=== PATIENT | male | born 1980 | race Caucasian/White ===

== ENCOUNTER 2022-02-25 11:33 | Emergency (ER) | payer OTHER ==
[~2022-02-25] VITALS: Ht 167.6 cm; Wt 77.1 kg
[2022-02-25] MEDS ORDERED: NAPR-1180 PO (12:52)
[2022-02-25] MEDS ORDERED: KETOROLAC 60 MG VIAL (30MG/ML) IM ONE (13:00)
[2022-02-25 14:28] VITALS: BP 156/85
== END 2022-02-25 14:29 | disposition home or self-care (01) ==
LOC: EDH 11:33
DX: S03.42XA Sprain of jaw, left side, initial encounter (principal); R03.0 Elevated blood-pressure reading, without diagnosis of hypertension; X58.XXXA Exposure to other specified factors, initial encounter; Y93.89 Activity, other specified; Y92.89 Other specified places as the place of occurrence of the external cause; Y99.8 Other external cause status
CPT/HCPCS: 96372; 99283; J1885

== ENCOUNTER 2024-12-08 16:44 | Emergency (ER) | payer SELFPAY ==
[~2024-12-08] VITALS: Ht 167.6 cm; Wt 74.8 kg
[~2024-12-08 16:44] MED LIST: NAPR-1180 PO
--- NOTE | 2024-12-08 17:13 | ERN ---
General Chief Complaint: Abdominal Pain Stated Complaint: COUGH, PAIN ON ABD Time Seen by MD: 16:45 Time Seen by Midlevel: 16:45 Source: patient ( ) History of Present Illness Initial Comments Patient is a 44-year-old male presenting to the emergency department with pain and his left ribcage. Patient reports having two episodes of coughing. Shortly after the pain started. The pain is in his left lower chest wall and left upper quadrant area. It was worse with deep inspiration and certain movements. Denies any direct injury or fall. Denies any history of kidney stones Allergies: Coded Allergies: No Known Drug Allergies (Unverified Allergy, Unknown, 02/25/22) Home Meds Active Scripts Naproxen (Naprosyn) 500 Mg Tablet, 500 MG PO BIDPC, #60 TAB Prov:MARCELLA ARAMBULA 02/25/22 Past Medical History Past Medical History: No Pertinent History Past Surgical History: None Family History Family History: Negative Social History Social History: Negative ROS Dictation CONSTITUTIONAL: Negative except for HPI HEAD/FACE: Negative except for HPI EENT: Negative except for HPI RESPIRATORY: Negative except for HPI GASTROINTESTINAL/ABDOMINAL: Negative except for HPI GENITOURINARY: Negative except for HPI MUSCULOSKELETAL: Negative except for HPI INTEGUMENTARY: Negative except for HPI NEUROLOGICAL/PSYCH: Negative except for HPI HEMATOLOGIC/LYMPHATIC: Negative except for HPI All Systems Negative, Except as noted above. 13 point review of systems assessed and all negative except for above. Physical Exam Physical Exam Dictation Vital Signs reviewed General Appearance: Alert, oriented x 3, no acute distress, well developed, nourished. Head and Face: non-traumatic. Eyes: PERRL, pink conjunctivas, eyelid no trauma, anterior chamber with arcus senilis. Ears: Pinnas intact and no signs of trauma or erythema ear canals clear and no discharge TM no erythema Nose: No discharge, no bleeding. Oropharynx: Mouth normal, tongue pink, pharynx clear,no erythema, tonsils no exudates, no abscesses noted, mucous membrane moist Neck: Supple, non-tender, no thyromegaly, no masses, no JVD, no bruits Breast:Deferred Chest:No tenderness, no crepitus, no paradoxical movement, no retractions Lungs:Clear, well-ventilated, symmetric, no rales, no wheezing, no rhonchi, no stridor, good breath sounds bilaterally Heart: Regular rate, regular rhythm, no murmur, no gallops Vascular: no peripheral edema, Abdomen: Soft, positive bowel sounds, nondistended, no guarding, nontender, no rebound, no masses no hepatomegaly, no splenomegaly, no Trimble's sign, no hernias. Rectal: Deferred Genital: Deferred Neurological: Normal speech, motor function intact, sensory function intact Musculoskeletal: Neck nontender, full range of motion, back nontender, full range of motion, Extremities: nontender, full range of motion Skin: Color pink, dry, no turgor, no rash, no lacerations, no abrasions, no contusions. Lymphatic: Deferred Results Laboratory and Microbiology Lab and Micro Result Laboratory Tests Test 12/08/24 17:08 White Blood Count 7.8 K/uL (4.8-10.8) Red Blood Count 4.45 MIL/uL (4.50-6.20) L Hemoglobin 13.7 g/dL (14.0-18.0) L Hematocrit 40.4 % (42-54) L Mean Corpuscular Volume 90.8 fL (79-99) Mean Corpuscular Hemoglobin 30.8 pg (27.0-33.0) Mean Corpuscular Hemoglobin Concent 33.9 g/dL (32.0-36.0) Red Cell Distribution Width 12.7 % (11.0-15.5) Platelet Count 243 K/uL (130-400) Mean Platelet Volume 9.5 fL (7.5-10.5) Immature Granulocyte % (Auto) 0.3 % (0-1) Neutrophils (%) (Auto) 67.6 % (40.0-77.0) Lymphocytes (%) (Auto) 24.0 % (21.0-51.0) Monocytes (%) (Auto) 7.4 % (3.0-13.0) Eosinophils (%) (Auto) 0.3 % (0.0-8.0) Basophils (%) (Auto) 0.4 % (0.0-5.0) Neutrophils # (Auto) 5.3 K/uL (1.8-7.7) Lymphocytes # (Auto) 1.9 K/uL (1.0-4.8) Monocytes # (Auto) 0.6 K/uL (0.1-1.0) Eosinophils # (Auto) 0.02 K/uL (0.00-0.70) Basophils # (Auto) 0.03 K/uL (0.00-0.20) Absolute Immature Granulocyte (auto 0.02 K/uL (0-1) Nucleated Red Blood Cells 0.0 % (0.0-0.19) Urine Color YELLOW (YELLOW) Urine Appearance CLEAR (CLEAR) Urine pH 5.5 (5.0-8.0) Urine Specific Jackson 1.026 (1.001-1.031) Urine Protein 10 mg/dL (NEGATIVE) H Urine Glucose (UA) NEGATIVE mg/dL (NEGATIVE) Urine Ketones 5 mg/dL (NEGATIVE) H Urine Occult Blood +- (TRACE) (NEGATIVE) H Urine Nitrate NEGATIVE (NEGATIVE) Urine Bilirubin NEGATIVE mg/dL (NEGATIVE) Urine Urobilinogen 0.2 mg/dL (0.2-1.0) Urine Leukocyte Esterase NEGATIVE Jennifer/uL Urine RBC 0-1 /HPF (0-1) Urine WBC 0-1 /HPF (0-1) Urine Bacteria None /HPF (None Seen) Sodium Level 131 mmol/L (136-145) L Potassium Level 3.2 mmol/L (3.5-5.1) L Chloride Level 93 mmol/L (101-111) L Carbon Dioxide Level 29 mmol/L (21-32) Blood Urea Nitrogen 13 mg/dL (7-18) Creatinine 1.0 mg/dL (0.5-1.3) Glomerular Filtration Rate Calc 94 mL/min (>90) Random Glucose 101 mg/dL (70-105) Total Calcium 9.4 mg/dL (8.5-10.1) Total Bilirubin 0.6 mg/dL (0.2-1.0) Direct Bilirubin 0.1 mg/dL (0.0-0.3) Aspartate Amino Transf (AST/SGOT) 55 U/L (10-37) H Alanine Aminotransferase (ALT/SGPT) 50 U/L (12-78) Alkaline Phosphatase 85 U/L (50-136) Troponin I High Sensitivity < 4 ng/L (4-75) L Total Protein 8.6 g/dL (6.0-8.3) H Albumin 4.1 g/dL (3.5-5.0) Lipase 48 U/L (16-77) Labs Reviewed?: Yes MDM MDM: Patient is a 44-year-old male presenting to the emergency department with pain and his left ribcage. Patient reports having two episodes of coughing. Shortly after the pain started. The pain is in his left lower chest wall and left upper quadrant area. It was worse with deep inspiration and certain movements. Denies any direct injury or fall. Denies any history of kidney stones. On physical examination the patient has subjective pain to the left lower chest wall/left upper quadrant pain. Cardiac workup was initiated to rule out an acute coronary syndrome. EKG does not show any evidence of a IN. Cardiac enzymes are negative. Chest x-ray does shows no evidence of a pneumothorax. A CT scan of the abdomen was ordered after UA showed trace microscopic hematuria. CT scan does not reveal any evidence of a ureter stone or any other acute intra-abdominal pathologies. The patient was reassessed and believes the pain may be musculoskeletal in nature. Patient was given 15 mg of Toradol IV and reports feeling improved. Patient was stable for discharge at this time. Patient was advised to follow up with primary care doctor in 2-3 days for repeat evaluation. Return precautions discussed Differential diagnosis: Pneumothorax, ureter stone, ACS There are no social concerns with this patient. Prescription drug management Prescriptions will include: None Medical management and examination interpretation discussions were had by me with other qualified healthcare professionals as indicated for the patient's care. ED Course Orders Procedure Category Date Status Time Cbc With Differential LAB 12/08/24 Complete 17:00 Basic Metabolic Panel LAB 12/08/24 Complete 17:00 Hepatic Function Panel LAB 12/08/24 Complete 17:00 Lipase LAB 12/08/24 Complete 17:00 Urinalysis Profile LAB 12/08/24 Complete 17:00 Chest 1vw RAD 12/08/24 Resulted 17:00 Troponin I High LAB 12/08/24 Complete Sensitivity 17:00 12 Lead Ekg Tracing- EKG 12/08/24 Complete Technical 17:00 Ct Abdomen/Pelvis W/O CT 12/08/24 Resulted Contrast 18:01 Ketorolac PHA 12/08/24 Complete Tromethamine 15mg/Ml 18:30 Current Medications Medications (Trade) Dose Ordered Sig/Althea Route PRN Reason Start Time Stop Time Status Last Admin Dose Admin Ketorolac Tromethamine (toRADol) 15 mg ONCE ONCE IV 12/08/24 18:30 12/08/24 18:31 DC 12/08/24 18:43 Vital Signs Date Time Temp Pulse Resp B/P (MAP) Pulse Ox O2 Delivery O2 Flow Rate FiO2 12/08/24 16:49 99.1 98 16 182/96 98 Room Air DX & DISP Disposition: Discharge Departure Impression: Primary Impression: Non-cardiac chest pain Additional Impression: Musculoskeletal pain Condition: Stable Additional Instructions: Your blood work today is unremarkable. Your cardiac enzymes are negative. Your EKG does not show any evidence of a heart attack. Your chest x-ray does not show any evidence of a collapsed lung. Your CT scan of the abdomen/pelvis does not show any evidence of a kidney stone in the left side. Your symptoms are most likely musculoskeletal in nature. However, we have ruled out certain emergencies that are life-threatening at this time. Please follow up with your primary care doctor for further evaluation. Referrals: NONE (PCP) Time of Disposition: 18:45 I have reviewed the case, and I agree with, Diagnosis and Plan I performed the substantive portion of the visit. I have reviewed and personally made and approve the management plan that is documented in the note by myself or the GALDINO. I acknowledge for responsibility for the patient's management plan. DANISH FREEMAN Dec 08, 2024 17:13
[2024-12-08 17:20] LABS: BASOPHILS # (AUTO) 0.03 K/uL (0.00-0.20); BASOPHILS % (AUTO) 0.4 % (0.0-5.0); EOSINOPHILS # (AUTO) 0.02 K/uL (0.00-0.70); EOSINOPHILS % (AUTO) 0.3 % (0.0-8.0); HEMATOCRIT 40.4 % (42-54); IMMATURE GRANULOCYTE ABSOLUTE 0.02 K/uL (0-1); LYMPHOCYTES # (AUTO) 1.9 K/uL (1.0-4.8); MEAN CORPUSCULAR HEMOGLOBIN 30.8 pg (27.0-33.0); MEAN CORPUSCULAR HGB CONC 33.9 g/dL (32.0-36.0); MEAN CORPUSCULAR VOLUME 90.8 fL (79-99); MONOCYTES # (AUTO) 0.6 K/uL (0.1-1.0); MONOCYTES % (AUTO) 7.4 % (3.0-13.0); NEUTROPHILS # (AUTO) 5.3 K/uL (1.8-7.7); NEUTROPHILS % (AUTO) 67.6 % (40.0-77.0); PLATELET COUNT (AUTO) 243 K/uL (130-400); RED BLOOD CELL COUNT(AUTO) 4.45 MIL/uL (4.50-6.20); RED CELL DISTRIBUTION WIDTH 12.7 % (11.0-15.5); WHITE BLOOD COUNT (AUTO) 7.8 K/uL (4.8-10.8)
[2024-12-08 17:22] LABS: APPEARANCE,URINE CLEAR (CLEAR); BILIRUBIN,URINE NEGATIVE (NEGATIVE); COLOR,URINE YELLOW (YELLOW); GLUCOSE, URINE (UA) NEGATIVE (NEGATIVE); KETONES,URINE 5 mg/dL (NEGATIVE); LEUKOCYTE ESTERASE ,URINE NEGATIVE Leu/uL (NEGATIVE); NITRATE,URINE NEGATIVE (NEGATIVE); PH,URINE 5.5 (5.0-8.0); PROTEIN,URINE 10 mg/dL (NEGATIVE); UROBILINOGEN,URINE 0.2 mg/dL (0.2-1.0)
[2024-12-08 17:23] LABS: ADD UA MICROSCOPIC YES; RBC,URINE 0-1 /HPF (0-1); WBC,URINE 0-1 /HPF (0-1)
[2024-12-08 17:29] LABS: POTASSIUM 3.2 mmol/L (3.5-5.1)
[2024-12-08 17:33] LABS: ALBUMIN 4.1 g/dL (3.5-5.0); BILIRUBIN,DIRECT 0.1 mg/dL (0.0-0.3); BILIRUBIN,TOTAL 0.6 mg/dL (0.2-1.0); TOTAL PROTEIN, SERUM 8.6 g/dL (6.0-8.3)
--- NOTE | 2024-12-08 17:36 | EKG ---
[facility] Test Date: 2024-12-08 Test Time: 17:34:31 Pat Name: PETER SULLIVAN Department: ED Room: Gender: M Apple Sorter: [id number] : 1980 Requested By: DANISH FREEMAN Order Number: [id number] Reading MD: Nils Mtz Measurements Intervals Alden Rate: 89 P: 47 DE: 147 QRS: 46 QRSD: 93 T: 28 QT: 342 QTc: 416 Interpretive Statements Sinus rhythm ST elev, probable normal early repol pattern No previous ECG available for comparison Electronically Signed On 12-10-2024 12:44:34 CDT by Nils Mtz Please click the below link to view image of tracing.
--- NOTE | 2024-12-08 18:18 | HMCIMG ---
CHEST 1VW HISTORY: Chest wall pain COMPARISON: None FINDINGS: A frontal projection of the chest was obtained. No acute pulmonary infiltrates is seen. The heart is normal in size. Prominent interstitial markings are seen. Mild degenerative changes are seen. No evidence of aortic calcification is seen. IMPRESSION: 1. No acute pulmonary infiltrate is seen.
--- NOTE | 2024-12-08 18:20 | HMCIMG ---
CT ABDOMEN/PELVIS W/O CONTRAST HISTORY: Left flank pain COMPARISON: None TECHNIQUE: Multiple sequential axial images of the abdomen and pelvis were obtained from the dome of the diaphragm through symphysis pubis. Patient was not given contrast through intravenous route. Oral contrast was not given. FINDINGS: No pleural effusion is seen bilaterally. There is no evidence of parenchymal disease or pulmonary nodule of the visualized lower lungs. Degenerative changes of the thoracolumbar spine are present. The heart is not enlarged. The liver is enlarged with fatty changes measuring 18 cm. The liver, spleen, adrenal glands and pancreas are unremarkable. There is no evidence of hydronephrosis bilaterally. No evidence of renal stone is seen. Fecal material is seen in the colon. There are normal size retroperitoneal and mesenteric lymph nodes. No ascites is seen. No CT evidence of acute appendicitis is seen. Pelvic sidewalls are symmetric bilaterally. Bladder is poorly distended. IMPRESSION: 1. No acute findings. CT was performed with one or more following dose reduction techniques: automated exposure control, adjustment of the mA and kv according to patient's size, or use of a iterative reconstruction technique.
[2024-12-08] MEDS: ketOROlac 15MG/ML VIAL (15MG/ML) IV ONE (18:43)
[2024-12-08 18:56] VITALS: BP 140/94; PULSE 72; RESP 16; TEMP 98.1; O2SAT 98
== END 2024-12-08 19:03 | disposition home or self-care (01) ==
LOC: EDH 16:44
DX: R07.89 Other chest pain (principal); M79.18 Myalgia, other site
CPT/HCPCS: 99285; 74176; 96374; 71045; 80076; 84484; 80048; 83690; 85025; 81001; 36415; 93005; J1885